=== PATIENT | female | born 1950 | race Asian ===

== ENCOUNTER 2018-05-05 18:24 | Inpatient (IN) | payer MEDICARE, OTHER ==
[~2018-05-05] VITALS: Ht 152.4 cm; Wt 47.3 kg
[2018-05-05] MEDS ORDERED: PRIM250T PO (18:59)
[2018-05-05] MEDS ORDERED: OMEP20CA10 PO (18:59)
[2018-05-05] MEDS ORDERED: MAGN400O6 PO (18:59)
[2018-05-05] MEDS ORDERED: ASPI-1169 PO (18:59)
[2018-05-05] MEDS ORDERED: NIFE30TA2 PO (18:59)
[2018-05-05] MEDS ORDERED: DOCU-141 PO (18:59)
[2018-05-05] MEDS ORDERED: DIVA500T4 PO (18:59)
[2018-05-05] MEDS ORDERED: MULT-447 PO (18:59)
[2018-05-05] MEDS ORDERED: OLAN10TA3 PO (18:59)
[2018-05-05] MEDS ORDERED: METO25TA3 PO (18:59)
[2018-05-05] MEDS ORDERED: LACT10SO PO (18:59)
[2018-05-05] MEDS ORDERED: THIA100T13 PO (18:59)
[2018-05-05] MEDS ORDERED: FLUO20CA36 PO (18:59)
[2018-05-05] MEDS ORDERED: ACET-868 PO (18:59)
--- NOTE | 2018-05-05 19:05 | NUR ---
PT BIB [facility] WITH [facility]ITATION AT [facility]. PT APPEARS RESTLESS. PT WAS TRIAGED AND TAKEN TO ROOM #16. PT IS ON THE MONITOR AND CONTINUOUS PULSE OX.
--- NOTE | 2018-05-05 19:10 | NUR ---
PT IS STANDING UP AND STATED THAT SHE HAS TO URINATE. PT WAS CLEANED AND NEW DIAPER APPLIED BY CHAVA RIDDLE
--- NOTE | 2018-05-05 19:23 | NUR ---
REPORT REC'D FROM CHAVA RIDDLE FOR NEVA.
[2018-05-05 19:31] LABS: BASOPHILS % (AUTO) 0.4 % (0.0-2.0); EOSINOPHILS % (AUTO) 13.4 % (0.0-6.0); HEMATOCRIT 26 % (33-45); HEMOGLOBIN 8.9 g/dL (11.5-14.8); LYMPHOCYTES # (AUTO) 1.5 /CMM (0.8-4.8); MEAN CORPUSCULAR HEMOGLOBIN 35 PG (26.0-33.0); MEAN CORPUSCULAR HGB CONC 34 g/dl (31.0-36.0); MEAN CORPUSCULAR VOLUME 100 fL (82-100); MONOCYTES # (AUTO) 0.6 /CMM (0.1-1.30); MONOCYTES % (AUTO) 11.9 % (2.0-12.0); NEUTROPHILS # (AUTO) 2.3 /CMM (1.8-8.9); NEUTROPHILS % (AUTO) 44.3 % (43.0-81.0); PLATELET COUNT (AUTO) 256 /CMM (150-450); RDW COEFFICIENT OF VARIATION 13.6 (11.5-15.0); RED BLOOD CELL COUNT(AUTO) 2.59 MIL/uL (4.0-5.2); WHITE BLOOD COUNT (AUTO) 5.1 K/uL (4.3-11.0)
[2018-05-05 19:46] LABS: ALANINE AMINOTRANSFERASE 47 U/L (12-78); ALBUMIN 2.8 g/dL (3.4-5.0); ALCOHOL, BLOOD < 3 mg/dL (0-0); ALKALINE PHOSPHATASE 189 U/L (46-116); ASPARTATE AMINOTRANSFERASE 27 U/L (15-37); BILIRUBIN,TOTAL 0.1 mg/dL (0.2-1.0); CALCIUM, SERUM 9.5 mg/dL (8.5-10.1); CARBON DIOXIDE 26 mmol/L (21-32); CHLORIDE 109 mmol/L (98-107); CREATININE 1.7 mg/dL (0.6-1.3); GLUCOSE 90 mg/dL (74-106); SODIUM SERUM 141 mmol/L (136-145); TOTAL PROTEIN, SERUM 7.4 g/dL (6.4-8.2); UREA NITROGEN, BLOOD 70 mg/dL (7-18)
[2018-05-05 19:49] LABS: POTASSIUM 6.4 mmol/L (3.5-5.1)
[2018-05-05 19:50] LABS: ACETAMINOPHEN < 2 ug/ml (10-30); SALICYLATE < 2.8 mg/dL (2.8-20.0)
--- NOTE | 2018-05-05 19:53 | NUR ---
REPORT GIVEN TO CHAVA LOYD FOR NEVA.
[2018-05-05] MEDS ORDERED: IV NS 0.9% 1,000 ML BAG IV ONE (20:00)
[2018-05-05] MEDS ORDERED: HALOPERIDOL LACTATE INJ 5 MG/ML VIAL ONE (20:00)
[2018-05-05] MEDS ORDERED: SODIUM POLYSTYRENE SULFONATE 15 G/60 ML BOTTLE PO ONE (20:00)
[2018-05-05] MEDS ORDERED: HALOPERIDOL LACTATE INJ 5 MG/ML VIAL IM ONE (20:00)
[2018-05-05] MEDS ORDERED: SODIUM POLYSTYRENE SULFONATE 15 G/60 ML BOTTLE ONE (20:00)
--- NOTE | 2018-05-05 20:15 | NUR ---
PT REFUSED KAYEXELATE PO. PT SPIT IT OUT. NOTIFIED.
--- NOTE | 2018-05-05 20:39 | NUR ---
IV INSERTION IN PROGRESS AT THE BEDSIDE. 20G RT HAND.
--- NOTE | 2018-05-05 20:43 | NUR ---
RIGHT HAND 20G IV PLACED WITH GOOD BLOOD RETURN AND FLUSHING WELL.
--- NOTE | 2018-05-05 21:14 | NUR ---
GAVE REPORT TO 3W NALLELY LARSEN FOR CONTINUITY OF CARE.
--- NOTE | 2018-05-05 21:49 | NUR ---
PT TRANSPORTED TO 3 IN STABLE CONDITION. TRANSFER OF CARE GIVEN TO NALLELY LARSEN.
--- NOTE | 2018-05-05 21:50 | NUR ---
MILITARY ANALYSTCHAIN MAKER MACHINE NOTES: Patient came to unit via gurney. Patient is confused, aggressive and combative. When given care, patient started screaming, hitting, and kicking staff. Patient pulled out the tele monitor and IV line. Skin and body assessment done. Skin intact, bruises on R) arm and R) leg and scratch on forehead noted. Pictures in chart. Safety measures in place. Bed in low locked position, bed alarms on. Will monitor accordingly
[2018-05-05 22:00] VITALS: BP 149/91
--- NOTE | 2018-05-05 22:28 | NUR ---
RN NOTES: ORDERS OBTAIN FOR ACUTE MEDICAL RESTRAINTS TAKEN FROM DR. FRY.
--- NOTE | 2018-05-05 22:30 | NUR ---
RN NOTES: Patient put on bilateral soft restraints on wrist. Patient aggressive and combative, pulling out IV line and tele monitor and hitting staff. Safety precautions in place. Monitor accordingly
--- NOTE | 2018-05-05 22:45 | NUR ---
CHAVA NOTES: PATIENT HAS CALMED DOWN AND IS CURRENTLY SLEEPING. Addendum: 05/06/18 at 0016 by NALLELY DRIVER RN ADDITIONAL NOTES: Tele monitor in place, Sinus ping 56
[2018-05-05] MEDS ORDERED: ACETAMINOPHEN 325 MG TABLET PO PRN (23:30)
[2018-05-05] MEDS ORDERED: OLANZAPINE 10 MG TABLET PO SCH (23:30)
[2018-05-05 23:48] LABS: TROPONIN I 0.148 ng/mL (0.00-0.056)
[2018-05-06] VITALS (7 sets, daily range): BP systolic 102–160; BP diastolic 56–88
[2018-05-06] MEDS ORDERED: TEMAZEPAM 15 MG CAPSULE PO PRN
[2018-05-06] MEDS ORDERED: ONDANSETRON HCL/PF 4 MG/2 ML VIAL IVP PRN
[2018-05-06] MEDS ORDERED: ACETAMINOPHEN 325 MG TABLET PO PRN
[2018-05-06] MEDS ORDERED: ALBUTEROL FS 2.5 MG/3 ML VIAL.NEB NEB PRN
--- NOTE | 2018-05-06 00:19 | NUR ---
SURFACE TO AIR WEAPONS OFFICER NOTES: Patient is currently sleeping, zyprexa not given. Patient gets aggressive and combative when disturbed
[2018-05-06] MEDS: HALOPERIDOL LACTATE INJ 5 MG/ML VIAL IM PRN ×2 (01:29→14:37)
--- NOTE | 2018-05-06 01:32 | NUR ---
RN NOTES: Patient started screaming and climbing out of bed. Haldol given as ordered
--- NOTE | 2018-05-06 06:22 | NUR ---
RN CLOSING NOTES: Patient sleeping in bed. Breathing even and unlabored. Not in any distress. Tele monitor in place, Sinus Rhythm 82. Bilateral soft wrist restraints in place, Q2H checks done. DVT pump in place. All needs attended to. Medication given as ordered. Will endorse NEVA to am shift RN.
[2018-05-06 06:26] LABS: ALBUMIN 2.9 g/dL (3.4-5.0); BILIRUBIN,TOTAL 0.1 mg/dL (0.2-1.0); CALCIUM, SERUM 9.4 mg/dL (8.5-10.1); CREATININE 1.5 mg/dL (0.6-1.3); MAGNESIUM 2.4 mg/dL (1.8-2.4); PHOSPHORUS 4.2 mg/dL (2.5-4.9); POTASSIUM 5.9 mmol/L (3.5-5.1); TOTAL PROTEIN, SERUM 8.1 g/dL (6.4-8.2); TROPONIN I 0.186 ng/mL (0.00-0.056)
[2018-05-06 06:34] LABS: THYROID STIMULATING HORMONE 5.581 uIU/mL (0.358-3.74)
[2018-05-06 06:43] LABS: BASOPHILS % (AUTO) 0.3 % (0.0-2.0); EOSINOPHILS % (AUTO) 14.4 % (0.0-6.0); HEMATOCRIT 31 % (33-45); HEMOGLOBIN 10.6 g/dL (11.5-14.8); LYMPHOCYTES # (AUTO) 1.5 /CMM (0.8-4.8); LYMPHOCYTES % (AUTO) 30.3 % (20.0-44.0); MEAN CORPUSCULAR HEMOGLOBIN 35 PG (26.0-33.0); MEAN CORPUSCULAR HGB CONC 34 g/dl (31.0-36.0); MEAN CORPUSCULAR VOLUME 102 fL (82-100); MONOCYTES # (AUTO) 0.4 /CMM (0.1-1.30); MONOCYTES % (AUTO) 8.7 % (2.0-12.0); NEUTROPHILS # (AUTO) 2.2 /CMM (1.8-8.9); NEUTROPHILS % (AUTO) 46.3 % (43.0-81.0); PLATELET COUNT (AUTO) 245 /CMM (150-450); RDW COEFFICIENT OF VARIATION 13.9 (11.5-15.0); RED BLOOD CELL COUNT(AUTO) 3.08 MIL/uL (4.0-5.2); WHITE BLOOD COUNT (AUTO) 4.8 K/uL (4.3-11.0)
[2018-05-06] MEDS ORDERED: OLANZAPINE 5 MG TABLET PO SCH (07:03)
--- NOTE | 2018-05-06 07:30 | NUR ---
RN NOTES PATIENT RECEIVED AWAKE ALERT AND VERBALLY RESPONSIVE, CONFUSED, ABLE TO MAKE NEEDS KNOWN, RESPIRATIONS EVEN AND UNLABORED, ABLE TO MAKE NEEDS KNOWN, DENIES ANY PAIN OR DISCOMFORT AT THIS TIME. ON SOFT WRIST RESTRAINTS, PATIENT WITH NO IV ACCESS MD AWARE. SAFETY MEASURES IN PLACE, REMINDED PATIENT TO CALL WHEN ASSISTANCE IS NEEDED. WILL CONTINUE TO FOLLOW UP WITH PT CARE NEEDS, CALL LIGHT WITH REACH WILL CONTINUE TO MONITOR
[2018-05-06] MEDS: NIFEdipine XL (30MG) 30 MG TAB PO SCH (08:36)
[2018-05-06] MEDS: THIAMINE HCL 100 MG TABLET PO SCH (08:36)
[2018-05-06] MEDS: PANTOPRAZOLE 40 MG TABLET.DR PO SCH (08:36)
[2018-05-06] MEDS: MULTIVIT, IRON, MIN NO. 8, FA 1 TAB PO SCH (08:42)
[2018-05-06] MEDS: PRIMIDONE 250 MG TABLET PO SCH ×3 (08:42→16:37)
[2018-05-06] MEDS: DIVALPROEX SODIUM 500 MG TABLET.DR PO SCH ×2 (08:42→16:37)
[2018-05-06] MEDS ORDERED: SODIUM POLYSTYRENE SULFONATE 15 G/60 ML BOTTLE PO ONE ×2 (09:30→12:00)
[2018-05-06] MEDS: ASPIRIN EC 325 MG TABLET.DR PO SCH (10:21)
[2018-05-06] MEDS ORDERED: IV 1/2NS 1000 ML 1,000 ML IV PRN (11:00)
[2018-05-06] MEDS: DIVALPROEX SODIUM 250 MG TABLET.DR PO SCH (14:37)
[2018-05-06] MEDS ORDERED: OLANZAPINE 2.5 MG TABLET PO PRN (16:00)
--- NOTE | 2018-05-06 17:20 | NUR ---
Patient resides at [facility] [phone] was transferred due to increased agitation and aggressive behavior towards the staff and residents of the facility. D/C plan is possible prakash vs back to [facility] . Addendum: 05/06/18 at 1721 by MOY CORTES RN Amended: Links added.
[2018-05-06 18:38] LABS: OCCULT BLOOD STOOL NEGATIVE (NEGATIVE)
[2018-05-06 19:00] LABS: CALCIUM, SERUM 8.6 mg/dL (8.5-10.1); CREATININE 1.5 mg/dL (0.6-1.3); POTASSIUM 5.3 mmol/L (3.5-5.1)
--- NOTE | 2018-05-06 19:10 | NUR ---
RN CLOSING NOTES PATIENT SLEEPING COMFORTABLY IN BED ABLE TO WAKE UP AND VERBALLY RESPONSIVE, CONFUSED, ABLE TO MAKE NEEDS KNOWN, RESPIRATIONS EVEN AND UNLABORED,IN NO APPARENT PAIN OR DISCOMFORT AT THIS TIME. ON SOFT WRIST RESTRAINTS, PATIENT WITH IV ACCESS TO BLACK 22G PATENT AND INTACT NO REDNESS OR INFILTRATION NOTED. SAFETY MEASURES IN PLACE, REMINDED PATIENT TO CALL WHEN ASSISTANCE IS NEEDED. WILL CONTINUE TO FOLLOW UP WITH PT CARE NEEDS, CALL LIGHT WITH REACH WILL CONTINUE TO MONITOR AND ENDORSED TO NEXT SHIFT FOR CONTINUITY OF CARE
--- NOTE | 2018-05-06 20:00 | NUR ---
MS/RN OPENING NOTES PATIENT IN BED, DISORIENTED AND REQUIRE ASSISTANCE AT ALL TIMES, IV WAS PULLED OUT AND TRYING TO GET OUT OF BED, PER AM RN , HALDOL WAS GIVEN BEFORE THE START OF SHIFT. REQUIRE RESTRAINT AND SITTER FOR SAFETY PATIENT ATTEMPT S TO HIT AND KICK, ORDERED SITTER AND RESTRAINT REQUIRE RENEWAL. RESPIRATIONS EVEN AND UNLABORED. WILL MONITOR FOR SAFETY, KEPT SKIN INTACT AND DRY, HAD BM, CHANGE AND KEPT CLEAN.
[2018-05-06] MEDS ORDERED: FLUOXETINE HCL 20 MG CAPSULE PO SCH (22:00)
[2018-05-06] MEDS: DOCUSATE SODIUM 100 MG CAPSULE PO SCH (22:26)
--- NOTE | 2018-05-06 22:41 | NUR ---
ms/rn notes PATIENT OBSERVE ASLEEP AT THIS TIME, RESTRAINT REMOVE. IV REMOVED 30 MINUTEWS AGO AND PATIENT REFUSE TO HAVE IV REINSERTION AT THIS TIME.MONITORING.ABLE TO TOLERTAE MEDICATION.
[2018-05-07] MEDS: HALOPERIDOL LACTATE INJ 5 MG/ML VIAL IM PRN (00:30)
--- NOTE | 2018-05-07 00:34 | NUR ---
ms/rn notes patietn awaken from sleep, restless and require as needed medication haldol due and im injection given , able to tolerate and monitoring any changes.
--- NOTE | 2018-05-07 00:54 | NUR ---
MS/RN NOTES ANG TRUJILLO WAS MADE AWARE REGARDING PATIENT REMOVING AND REFUSAL TO HAVE IV REINSERTED, ABLE TO DRINK, PROVIDE FLUIDS AND TOLERTAED FLUIDS HOB ELEVATED. MD ORDER TO D/C IV FLUID , ORDER CARRIED OUT.
--- NOTE | 2018-05-07 01:55 | NUR ---
MS/RN NOTES URINE COLLECTED, LAB WAS INFORMED SAID WILL ERP PROJECT MANAGER
--- NOTE | 2018-05-07 02:00 | NUR ---
MS/RN NOTES PATIENT PULLED OUT IV , INFORMED ONCCLAU TRUJILLO, MADE AWARE, SAID TO PROVIDE FLUIDS AND MONITOR INTAKE, CAN D/C IV FLUIDS.
--- NOTE | 2018-05-07 06:19 | NUR ---
MS/RN NOTES PATIENT EXHIBITING AGITATION, SCREAMING AND KICKING, NEEDED ZYPREXA TO BE GIVEN, UNABLE TO GIVE PATIENT REFUSAL TO TAKE MEDICATION .
--- NOTE | 2018-05-07 06:24 | NUR ---
308-2 MS/RN NOTES PATIENT REQUIRE FREQUENT MONITORING, WITH A SITTER, ABLE TO REMOVE RESTRAINT AND MONITORING FOR ANY CHANGES, KEPT SKIN INTACT AND DRY, WILL MONITOR.REQUIRE OXYGEN VIA NC FOR COMDORT. CALL LIGHTS WITHIN REACH, BED IN LOCK POSITION.WILL ENDORSE TO AM RN FOR CO. PATIENT ABLE TO SLEEP FEW HOURS, ABLE TO DRINK FLUIDS,WITH SITTER
[2018-05-07 07:09] LABS: TROPONIN I 0.265 ng/mL (0.00-0.056)
[2018-05-07 07:28] LABS: CREATININE, URINE 24.8 MG/DL (30.0-125.0)
[2018-05-07 07:46] LABS: CALCIUM, SERUM 9.2 mg/dL (8.5-10.1); CREATININE 1.5 mg/dL (0.6-1.3); PHOSPHORUS 4.1 mg/dL (2.5-4.9); POTASSIUM 5.5 mmol/L (3.5-5.1)
[2018-05-07 08:00] VITALS: BP 158/73
[2018-05-07] MEDS ORDERED: OLANZAPINE 2.5 MG TABLET PO SCH (09:00)
[2018-05-07] MEDS: THIAMINE HCL 100 MG TABLET PO SCH (09:50)
[2018-05-07] MEDS: MULTIVIT, IRON, MIN NO. 8, FA 1 TAB PO SCH (09:50)
[2018-05-07] MEDS: NIFEdipine XL (30MG) 30 MG TAB PO SCH (09:51)
[2018-05-07] MEDS: PANTOPRAZOLE 40 MG TABLET.DR PO SCH (09:51)
[2018-05-07] MEDS: ASPIRIN EC 325 MG TABLET.DR PO SCH (09:51)
[2018-05-07] MEDS: DIVALPROEX SODIUM 500 MG TABLET.DR PO SCH ×2 (09:51→17:11)
[2018-05-07] MEDS: PRIMIDONE 250 MG TABLET PO SCH ×3 (09:54→17:11)
[2018-05-07 09:57] LABS: HEMATOCRIT 28 % (33-45); HEMOGLOBIN 9.2 g/dL (11.5-14.8); MEAN CORPUSCULAR HEMOGLOBIN 34 PG (26.0-33.0); MEAN CORPUSCULAR VOLUME 103 fL (82-100); WHITE BLOOD COUNT (AUTO) 8.1 K/uL (4.3-11.0)
[2018-05-07 09:58] LABS: BASOPHILS % (AUTO) 0.3 % (0.0-2.0); EOSINOPHILS % (AUTO) 6.2 % (0.0-6.0); LYMPHOCYTES # (AUTO) 1.1 /CMM (0.8-4.8); LYMPHOCYTES % (AUTO) 13.6 % (20.0-44.0); MEAN CORPUSCULAR HGB CONC 33 g/dl (31.0-36.0); MONOCYTES # (AUTO) 0.7 /CMM (0.1-1.30); MONOCYTES % (AUTO) 8.9 % (2.0-12.0); NEUTROPHILS # (AUTO) 5.8 /CMM (1.8-8.9); PLATELET COUNT (AUTO) 272 /CMM (150-450); RDW COEFFICIENT OF VARIATION 14.3 (11.5-15.0)
[2018-05-07] MEDS ORDERED: SODIUM POLYSTYRENE SULFONATE 15 G/60 ML BOTTLE PO ONE (12:00)
[2018-05-07] MEDS: DIVALPROEX SODIUM 250 MG TABLET.DR PO SCH (12:36)
[2018-05-07] MEDS: OLANZAPINE 2.5 MG TABLET PO SCH (14:55)
[2018-05-07 16:00] VITALS: BP 155/79
--- NOTE | 2018-05-07 19:26 | NUR ---
RN NOTES PATIENT AWAKE ALERT AND VERBALLY RESPONSIVE, CONFUSED, ABLE TO MAKE NEEDS KNOWN, RESPIRATIONS EVEN AND UNLABORED, ABLE TO MAKE NEEDS KNOWN, DENIES ANY PAIN OR DISCOMFORT AT THIS TIME. ON SOFT WRIST RESTRAINTS, PATIENT WITH NO IV ACCESS MD AWARE. SAFETY MEASURES IN PLACE, REMINDED PATIENT TO CALL WHEN ASSISTANCE IS NEEDED. WILL CONTINUE TO FOLLOW UP WITH PT CARE NEEDS, CALL LIGHT WITH REACH WILL CONTINUE TO MONITOR AND ENDORSED TO NEXT SHIFT FOR CONTINUITY OF CARE
--- NOTE | 2018-05-07 19:50 | NUR ---
RN INITIAL NOTES: PATIENT AWAKE/VERBALLY RESPONSIVE, ABLE TO MAKE NEEDS KNOWN, BUT CONFUSED, SITTER AT BED SIDE. NO SOB NOTED, NO FACIAL GRIMACE NOTED, NO IV ACCESS PT KEPT PULLING IT OUT, MD AWARE. RECEIVED ON BILATERAL SOFT WRIST RESTRAINT, RESTRAINT PROTOCOL FOLLOWED, PT ABLE TO MOVE AND WIGGLE ARMS AND HANDS, WITH RADIAL PULSES PALPABLE AND INTACT, GOOD CAPILLARY REFILL NOTED, NO S/S OF IMPEDIMENT IN CIRCULATION NOTED. SAFETY PRECAUTIONS FOR FALL INITIATED, CALL LIGHT WITH REACH WILL CONTINUE TO MONITOR.
[2018-05-07 20:00] VITALS: BP 100/51
[2018-05-07] MEDS: DOCUSATE SODIUM 100 MG CAPSULE PO SCH (21:56)
[2018-05-07 22:00] VITALS: BP 124/73
[2018-05-07] MEDS ORDERED: OLANZAPINE 5 MG TABLET PO SCH (22:00)
--- NOTE | 2018-05-07 22:10 | NUR ---
RN NOTES: PT TOOK MEDICATION, WHOLE PILL WITH APPLE SAUCE, COOPERATIVE, DRINK JUICE, ON ASPIRATION PRECAUTION
--- NOTE | 2018-05-08 01:00 | NUR ---
RN NOTES: DECIDED TO RELEASE THE RESTRAINT AT THIS TIME, PT IS CALM, SLEEPING, NO FACIAL GRIMACE NOTED, SITTER AT BED ISDE, WILL MONITOR THE NEED FOR RESTRAINT
--- NOTE | 2018-05-08 02:39 | NUR ---
RN NOTES: SEEN PT SLEEPING AT THIS TIME, APPEARS CALM AND COMFORTABLE, RESPIRATION EVEN AND UNLABORED, RESTRAINT REMAINS RELEASED
--- NOTE | 2018-05-08 03:01 | NUR ---
RN NOTES: RESTRAINT REMAINS RELEASED AT THIS TIME, PT SLEEPING AND CALM, SITTER AT BED SIDE, WILL MONITOR THE NEED FOR RESTRAINT
--- NOTE | 2018-05-08 06:44 | NUR ---
RN CLOSING NOTES: PT IN BED, AWAKE, REMAINS CONFUSED, ABLE TO MAKE NEEDS KNOWN, PT WENT TO THE RESTROOM ASSISTED BY CANVAS MARKER COUPLE OF TIMES TO VOID. NO IV ACCESS, MD AWARE. PT PERIODIC EPISODE OF BEING COOPERATIVE AND UNCOOPERATIVE. BILATERAL SOFT WRIST RESTRAINT IN PLACED, PT IS RESTLESS, RESTRAINT PROTOCOL FOLLOWED, RADIAL PULSES PALPABLE, WITH GOOD CAPILLARY REFILL NOTED, PT ABLE TO MOVE AND WIGGLE ARMS . NO S/S OF IMPEDIMENT IN CIRCULATION NOTED. BLE OFFLOADED. SITTER AT BED SIDE. VS REMAINS STABLE, NEEDS ATTENDED. SAFETY PRECAUTIONS FOR FALL REMAINS ENGAGED. CALL LIGHT IN REACH. WILL ENDORSE TO DAY RN FOR NEVA.
[2018-05-08] MEDS: PANTOPRAZOLE 40 MG TABLET.DR PO SCH (07:13)
[2018-05-08] MEDS: OLANZAPINE 2.5 MG TABLET PO SCH ×2 (07:13→13:25)
--- NOTE | 2018-05-08 07:15 | NUR ---
RN OPENING NOTES RECEIVED PT. IN BED A&OX1, CONFUSED, AND DISORIENTED, 1:1 SITTER AT BEDSIDE. PT. HAS BILATERAL SOFT WRIST RESTRAINTS DUE TO PT. BEHAVING COMBATIVE, AND PULLING OUT LINES PER NURSE REPORT. PT. IS BREATHING UNLABORED, AND EVENLY ON ROOM AIR. NO S/S OF ACUTE DISTRESS. BED ALARM ON. BED IS IN LOWEST, AND LOCKED POSITION, AND 2 SIDE RAILS UP. WILL CONTINUE TO ASSESS AND MONITOR. ALL NEEDS MET AT THIS TIME.
[2018-05-08 08:00] VITALS: BP 133/94
[2018-05-08 08:04] LABS: CALCIUM, SERUM 8.7 mg/dL (8.5-10.1); CREATININE 1.5 mg/dL (0.6-1.3); MAGNESIUM 1.7 mg/dL (1.8-2.4); PHOSPHORUS 4.4 mg/dL (2.5-4.9); POTASSIUM 4.8 mmol/L (3.5-5.1)
[2018-05-08] MEDS: DIVALPROEX SODIUM 500 MG TABLET.DR PO SCH ×2 (09:00→16:34)
[2018-05-08] MEDS: NIFEdipine XL (30MG) 30 MG TAB PO SCH ×2 (09:00→10:11)
[2018-05-08] MEDS: ASPIRIN EC 325 MG TABLET.DR PO SCH ×2 (09:00→10:12)
[2018-05-08] MEDS: MULTIVIT, IRON, MIN NO. 8, FA 1 TAB PO SCH ×2 (09:00→10:11)
[2018-05-08] MEDS: THIAMINE HCL 100 MG TABLET PO SCH ×2 (09:00→10:11)
[2018-05-08] MEDS: PRIMIDONE 250 MG TABLET PO SCH ×4 (09:00→16:34)
--- NOTE | 2018-05-08 09:33 | NUR ---
RN NOTES PT. REFUSING TO TAKE PO MEDICATIONS. TRIED TO FEED PT. PUDDING, AND CANNED PEACHES, AND PT. WAS SPITTING OUT HER FOOD.
[2018-05-08 10:11] VITALS: BP 133/94
[2018-05-08 10:21] LABS: BASOPHILS % (AUTO) 0.6 % (0.0-2.0); EOSINOPHILS % (AUTO) 8.8 % (0.0-6.0); HEMATOCRIT 27 % (33-45); HEMOGLOBIN 9.2 g/dL (11.5-14.8); MEAN CORPUSCULAR HEMOGLOBIN 35 PG (26.0-33.0); MEAN CORPUSCULAR HGB CONC 34 g/dl (31.0-36.0); MEAN CORPUSCULAR VOLUME 102 fL (82-100); MONOCYTES % (AUTO) 8.5 % (2.0-12.0); NEUTROPHILS % (AUTO) 44.1 % (43.0-81.0); PLATELET COUNT (AUTO) 261 /CMM (150-450); RDW COEFFICIENT OF VARIATION 14.4 (11.5-15.0); RED BLOOD CELL COUNT(AUTO) 2.63 MIL/uL (4.0-5.2)
[2018-05-08] MEDS ORDERED: Magnesium 1GM/D5W 100ML PREMIX 100 ML IV SCH (10:30)
[2018-05-08] MEDS ORDERED: MAGNESIUM OXIDE 400 MG TABLET PO ONE ×2 (11:00→13:00)
[2018-05-08] MEDS ORDERED: OLAN5TAB3 PO (12:09)
[2018-05-08] MEDS ORDERED: OLAN2.5T3 PO ×2 (12:09)
[2018-05-08] MEDS ORDERED: TEMA15CA5 PO (12:09)
[2018-05-08] MEDS: DIVALPROEX SODIUM 250 MG TABLET.DR PO SCH (13:25)
[2018-05-08] MEDS ORDERED: HALOPERIDOL 5 MG TABLET PO SCH (14:30)
[2018-05-08] MEDS: BENZTROPINE MESYLATE (1 MG) 1 MG TABLET PO SCH ×2 (14:58→16:34)
--- NOTE | 2018-05-08 17:51 | NUR ---
DISCHARGE FROM MED/SURG PT. WAS DISCHARGE FROM [facility] AND WILL BE TRANSFERRED TO [facility]. DISCHARGE INSTRUCTIONS CO SIGNED WITH ANOTHER NURSE DUE TO PT. UNABLE TO DUE TO HER CONDITION. PT. IS MEDICALLY STABLE. PLACED IN CHART PICTURES TAKEN BEFORE DISCHARGE, AND BELONGINGS LIST SIGNED AND CHECKED.
[2018-05-08] MEDS ORDERED: PANT40TA4 PO (18:32)
[2018-05-08] MEDS ORDERED: ONDA2VIA2 IVP (18:32)
[2018-05-08] MEDS ORDERED: DIVA250T PO (18:32)
[2018-05-08] MEDS ORDERED: ASPI-869 PO (18:32)
[2018-05-08] MEDS ORDERED: ALBU2.5V38 IH (18:32)
[2018-05-08] MEDS ORDERED: HALO5TAB8 PO (18:32)
[2018-05-08] MEDS ORDERED: BENZ0.5T43 PO (18:32)
[2018-05-08] MEDS ORDERED: HALO5VIA12 IM (18:32)
[2018-05-08] MEDS ORDERED: TEMA15CA PO (18:32)
== END 2018-05-08 16:30 | DRG 682 ==
LOC: EDBD 18:26 → ER 18:26 → TELE 21:16 → MED 05-06 09:14
PROVIDERS: ADMIT Internal Medicine; ATTEND Internal Medicine
DX: N17.0 Acute kidney failure with tubular necrosis (principal); I21.A1 Myocardial infarction type 2; E43 Unspecified severe protein-calorie malnutrition; G93.41 Metabolic encephalopathy; I13.0 Hypertensive heart and chronic kidney disease with heart failure and stage 1 through stage 4 chronic kidney disease, or unspecified chronic kidney disease; F01.51 Vascular dementia, unspecified severity, with behavioral disturbance; F23 Brief psychotic disorder; E87.5 Hyperkalemia; N18.9 Chronic kidney disease, unspecified; G40.909 Epilepsy, unspecified, not intractable, without status epilepticus; D72.1 Eosinophilia; F25.0 Schizoaffective disorder, bipolar type; K21.9 Gastro-esophageal reflux disease without esophagitis; M19.90 Unspecified osteoarthritis, unspecified site; I50.9 Heart failure, unspecified; F32.9 Major depressive disorder, single episode, unspecified; E83.42 Hypomagnesemia; E86.0 Dehydration; D53.9 Nutritional anemia, unspecified; Z68.20 Body mass index [BMI] 20.0-20.9, adult
CPT/HCPCS: 36415; 70450-TC; 71045-TC; 76770-TC; 80048-TC; 80053-TC; 80061-TC; 80076-TC; 80164-TC; 82272-TC; 82570-TC; 82746; 83540-TC; 83735-TC; 83880; 84100-TC; 84300-TC; 84443-TC; 84484-TC; 85025-TC; 87081-TC; 93307-TC; A4606; G0480; J1630; J3490; Z7610

== ENCOUNTER 2018-05-08 15:37 | Inpatient (IN) | payer MEDICARE, OTHER ==
[~2018-05-08] VITALS: Ht 152.4 cm; Wt 47.2 kg
[~2018-05-08 15:37] MED LIST: ACET-868 PO; ASPI-1169 PO; DIVA500T4 PO; DOCU-141 PO; FLUO20CA36 PO; LACT10SO PO; MAGN400O6 PO; METO25TA3 PO; MULT-447 PO; NIFE30TA2 PO; OLAN10TA3 PO; OLAN2.5T3 PO; OLAN5TAB3 PO; OMEP20CA10 PO; PRIM250T PO; TEMA15CA5 PO; THIA100T13 PO
[2018-05-08] MEDS ORDERED: BENZTROPINE MESYLATE (2MG/2ML) 2 MG/2 ML AMPUL IM ONE (18:30)
[2018-05-08] MEDS ORDERED: HALOPERIDOL LACTATE INJ 5 MG/ML VIAL IM ONE (18:30)
[2018-05-08] MEDS ORDERED: LORAZEPAM INJ 2 MG/ML VIAL IV ONE (18:30)
[2018-05-08] MEDS ORDERED: DIVA250T PO (18:32)
[2018-05-08] MEDS ORDERED: ALBU2.5V38 IH (18:32)
[2018-05-08] MEDS ORDERED: ONDA2VIA2 IVP (18:32)
[2018-05-08] MEDS ORDERED: TEMA15CA PO (18:32)
[2018-05-08] MEDS ORDERED: HALO5TAB8 PO (18:32)
[2018-05-08] MEDS ORDERED: HALO5VIA12 IM (18:32)
[2018-05-08] MEDS ORDERED: PANT40TA4 PO (18:32)
[2018-05-08] MEDS ORDERED: ASPI-869 PO (18:32)
[2018-05-08] MEDS ORDERED: BENZ0.5T43 PO (18:32)
[2018-05-08 20:00] VITALS: BP 147/77
[2018-05-08] MEDS ORDERED: LORAZEPAM INJ 2 MG/ML VIAL IM ONE (20:00)
[2018-05-09] MEDS ORDERED: HALOPERIDOL LACTATE INJ 5 MG/ML VIAL IM PRN
[2018-05-09] MEDS ORDERED: ACETAMINOPHEN 325 MG TABLET PO PRN
[2018-05-09] MEDS: TEMAZEPAM 15 MG CAPSULE PO PRN (00:27)
[2018-05-09] MEDS ORDERED: ALBUTEROL FS 2.5 MG/3 ML VIAL.NEB NEB PRN (07:35)
[2018-05-09] MEDS: PANTOPRAZOLE 40 MG TABLET.DR PO SCH (08:25)
[2018-05-09] MEDS: THIAMINE HCL 100 MG TABLET PO SCH (08:25)
[2018-05-09] MEDS: MULTIVIT, IRON, MIN NO. 8, FA 1 TAB PO SCH (08:25)
[2018-05-09] MEDS: NIFEdipine XL (30MG) 30 MG TAB PO SCH (08:26)
[2018-05-09] MEDS: ASPIRIN EC 325 MG TABLET.DR PO SCH (08:32)
[2018-05-09] MEDS: PRIMIDONE 250 MG TABLET PO SCH ×3 (08:33→18:29)
[2018-05-09] MEDS ORDERED: DIVALPROEX SODIUM 500 MG TABLET.DR PO SCH (09:00)
[2018-05-09] MEDS ORDERED: HALOPERIDOL 5 MG TABLET PO SCH ×2 (09:00→17:00)
[2018-05-09] MEDS ORDERED: BENZTROPINE MESYLATE (1 MG) 1 MG TABLET PO SCH (09:00)
[2018-05-09] MEDS ORDERED: VALPROIC ACID 250 MG/5 ML UDC PO SCH (13:00)
[2018-05-09] MEDS ORDERED: DIVALPROEX SODIUM 250 MG TABLET.DR PO SCH (13:00)
[2018-05-09 16:00] VITALS: BP 112/83
[2018-05-09] MEDS: BENZTROPINE MESYLATE (1 MG) 1 MG TABLET PO SCH (17:46)
[2018-05-09] MEDS: VALPROIC ACID 250 MG/5 ML UDC PO SCH (17:46)
[2018-05-09 19:54] VITALS: BP 110/59
[2018-05-09] MEDS: DOCUSATE SODIUM 100 MG CAPSULE PO SCH (22:28)
[2018-05-10] MEDS: TEMAZEPAM 15 MG CAPSULE PO PRN ×2 (01:15→22:04)
[2018-05-10 08:00] VITALS: BP 148/80
[2018-05-10] MEDS ORDERED: HALOPERIDOL 5 MG TABLET PO SCH (08:00)
[2018-05-10] MEDS: VALPROIC ACID 250 MG/5 ML UDC PO SCH ×3 (08:49→17:43)
[2018-05-10] MEDS: PANTOPRAZOLE 40 MG TABLET.DR PO SCH (08:50)
[2018-05-10] MEDS: MULTIVIT, IRON, MIN NO. 8, FA 1 TAB PO SCH (08:50)
[2018-05-10] MEDS: NIFEdipine XL (30MG) 30 MG TAB PO SCH (08:50)
[2018-05-10] MEDS: THIAMINE HCL 100 MG TABLET PO SCH (08:50)
[2018-05-10] MEDS: BENZTROPINE MESYLATE (1 MG) 1 MG TABLET PO SCH ×3 (08:50→17:43)
[2018-05-10] MEDS: ASPIRIN EC 325 MG TABLET.DR PO SCH (08:50)
[2018-05-10] MEDS: PRIMIDONE 250 MG TABLET PO SCH ×3 (08:54→17:44)
[2018-05-10] MEDS: HALOPERIDOL 5 MG TABLET PO PRN (10:40)
[2018-05-10] MEDS: HALOPERIDOL 5 MG TABLET PO SCH ×2 (12:25→17:43)
[2018-05-10] MEDS ORDERED: VALPROIC ACID 250 MG/5 ML UDC PO SCH (13:00)
[2018-05-10 16:16] VITALS: BP 136/81
[2018-05-10 20:56] VITALS: BP 101/60
[2018-05-10] MEDS: DOCUSATE SODIUM 100 MG CAPSULE PO SCH (21:23)
[2018-05-11 08:00] VITALS: BP 100/51
[2018-05-11] MEDS: NIFEdipine XL (30MG) 30 MG TAB PO SCH (09:00)
[2018-05-11] MEDS: PANTOPRAZOLE 40 MG TABLET.DR PO SCH (09:26)
[2018-05-11] MEDS: MULTIVIT, IRON, MIN NO. 8, FA 1 TAB PO SCH (09:27)
[2018-05-11] MEDS: ASPIRIN EC 325 MG TABLET.DR PO SCH (09:27)
[2018-05-11] MEDS: THIAMINE HCL 100 MG TABLET PO SCH (09:27)
[2018-05-11] MEDS: BENZTROPINE MESYLATE (1 MG) 1 MG TABLET PO SCH ×3 (09:27→17:29)
[2018-05-11] MEDS: VALPROIC ACID 250 MG/5 ML UDC PO SCH ×3 (09:27→17:28)
[2018-05-11] MEDS: HALOPERIDOL 5 MG TABLET PO SCH ×3 (09:27→17:29)
[2018-05-11] MEDS: PRIMIDONE 250 MG TABLET PO SCH ×3 (09:37→17:29)
[2018-05-11 16:00] VITALS: BP 109/61
[2018-05-11] MEDS: DOCUSATE SODIUM 100 MG CAPSULE PO SCH (21:44)
[2018-05-11] MEDS: TEMAZEPAM 15 MG CAPSULE PO PRN (23:44)
[2018-05-12] MEDS: HALOPERIDOL 5 MG TABLET PO PRN (02:19)
[2018-05-12 07:14] LABS: BASOPHILS % (AUTO) 0.1 % (0.0-2.0); EOSINOPHILS % (AUTO) 9.6 % (0.0-6.0); HEMATOCRIT 27 % (33-45); HEMOGLOBIN 8.9 g/dL (11.5-14.8); LYMPHOCYTES # (AUTO) 1.5 /CMM (0.8-4.8); MEAN CORPUSCULAR HEMOGLOBIN 35 PG (26.0-33.0); MEAN CORPUSCULAR HGB CONC 34 g/dl (31.0-36.0); MEAN CORPUSCULAR VOLUME 104 fL (82-100); MONOCYTES # (AUTO) 0.6 /CMM (0.1-1.30); MONOCYTES % (AUTO) 6.7 % (2.0-12.0); NEUTROPHILS % (AUTO) 66.6 % (43.0-81.0); PLATELET COUNT (AUTO) 268 /CMM (150-450); RDW COEFFICIENT OF VARIATION 14.7 (11.5-15.0); RED BLOOD CELL COUNT(AUTO) 2.57 MIL/uL (4.0-5.2)
[2018-05-12 07:28] LABS: CALCIUM, SERUM 8.9 mg/dL (8.5-10.1); MAGNESIUM 2.4 mg/dL (1.8-2.4); PHOSPHORUS 4.4 mg/dL (2.5-4.9); POTASSIUM 4.8 mmol/L (3.5-5.1)
[2018-05-12] MEDS: PANTOPRAZOLE 40 MG TABLET.DR PO SCH ×2 (07:30→08:22)
[2018-05-12] MEDS: HALOPERIDOL 5 MG TABLET PO SCH ×3 (08:00→13:44)
[2018-05-12] MEDS: VALPROIC ACID 250 MG/5 ML UDC PO SCH ×5 (08:21→17:18)
[2018-05-12 08:22] VITALS: BP 113/66
[2018-05-12] MEDS: BENZTROPINE MESYLATE (1 MG) 1 MG TABLET PO SCH ×5 (08:22→17:18)
[2018-05-12] MEDS: ASPIRIN EC 325 MG TABLET.DR PO SCH ×2 (08:22→09:00)
[2018-05-12] MEDS: PRIMIDONE 250 MG TABLET PO SCH ×5 (08:22→17:19)
[2018-05-12] MEDS: THIAMINE HCL 100 MG TABLET PO SCH ×2 (08:22→09:00)
[2018-05-12] MEDS: MULTIVIT, IRON, MIN NO. 8, FA 1 TAB PO SCH ×2 (08:22→09:00)
[2018-05-12] MEDS: NIFEdipine XL (30MG) 30 MG TAB PO SCH ×2 (08:22→09:00)
[2018-05-12] MEDS ORDERED: LORAZEPAM INJ 2 MG/ML VIAL IM STA (08:51)
[2018-05-12] MEDS ORDERED: BENZTROPINE MESYLATE (2MG/2ML) 2 MG/2 ML AMPUL IM STA (08:51)
[2018-05-12] MEDS ORDERED: HALOPERIDOL LACTATE INJ 5 MG/ML VIAL IM STA (08:51)
[2018-05-12 16:00] VITALS: BP 134/64
[2018-05-12] MEDS: risperiDONE-M 0.5 MG TAB.RAPDIS PO SCH ×2 (17:00→17:18)
[2018-05-12 20:00] VITALS: BP 132/73
[2018-05-12] MEDS: OLANZAPINE 5 MG/TAB.RAPDIS PO SCH (21:00)
[2018-05-12] MEDS: DOCUSATE SODIUM 100 MG CAPSULE PO SCH (21:26)
[2018-05-13 06:10] LABS: BASOPHILS % (AUTO) 0.1 % (0.0-2.0); EOSINOPHILS % (AUTO) 8.5 % (0.0-6.0); HEMATOCRIT 26 % (33-45); HEMOGLOBIN 8.9 g/dL (11.5-14.8); LYMPHOCYTES # (AUTO) 1.1 /CMM (0.8-4.8); MEAN CORPUSCULAR HEMOGLOBIN 35 PG (26.0-33.0); MEAN CORPUSCULAR HGB CONC 34 g/dl (31.0-36.0); MEAN CORPUSCULAR VOLUME 103 fL (82-100); MONOCYTES # (AUTO) 0.4 /CMM (0.1-1.30); MONOCYTES % (AUTO) 6.1 % (2.0-12.0); NEUTROPHILS % (AUTO) 66.3 % (43.0-81.0); PLATELET COUNT (AUTO) 276 /CMM (150-450); RDW COEFFICIENT OF VARIATION 14.5 (11.5-15.0); RED BLOOD CELL COUNT(AUTO) 2.53 MIL/uL (4.0-5.2)
[2018-05-13 06:46] LABS: ALBUMIN 3.1 g/dL (3.4-5.0); BILIRUBIN,TOTAL 0.2 mg/dL (0.2-1.0); MAGNESIUM 2.3 mg/dL (1.8-2.4); PHOSPHORUS 3.5 mg/dL (2.5-4.9); POTASSIUM 4.7 mmol/L (3.5-5.1); TOTAL PROTEIN, SERUM 7.9 g/dL (6.4-8.2)
[2018-05-13 07:38] LABS: CREATINE KINASE MB 3.9 ng/mL (0-3.6)
[2018-05-13 08:00] VITALS: BP 104/59
[2018-05-13] MEDS: NIFEdipine XL (30MG) 30 MG TAB PO SCH (09:00)
[2018-05-13] MEDS: risperiDONE-M 0.5 MG TAB.RAPDIS PO SCH ×2 (09:39→16:33)
[2018-05-13] MEDS: THIAMINE HCL 100 MG TABLET PO SCH (09:40)
[2018-05-13] MEDS: MULTIVIT, IRON, MIN NO. 8, FA 1 TAB PO SCH (09:40)
[2018-05-13] MEDS: ASPIRIN EC 325 MG TABLET.DR PO SCH (09:40)
[2018-05-13] MEDS: BENZTROPINE MESYLATE (1 MG) 1 MG TABLET PO SCH ×3 (09:40→16:33)
[2018-05-13] MEDS: VALPROIC ACID 250 MG/5 ML UDC PO SCH ×3 (09:40→16:34)
[2018-05-13] MEDS: PRIMIDONE 250 MG TABLET PO SCH ×3 (09:42→16:33)
[2018-05-13] MEDS: PANTOPRAZOLE 40 MG TABLET.DR PO SCH (09:42)
[2018-05-13 16:00] VITALS: BP 101/59
[2018-05-13] MEDS: HALOPERIDOL 5 MG TABLET PO PRN (18:34)
[2018-05-13 20:00] VITALS: BP 133/56
[2018-05-13] MEDS: TEMAZEPAM 15 MG CAPSULE PO PRN ×2 (21:24→21:25)
[2018-05-13] MEDS: OLANZAPINE 5 MG/TAB.RAPDIS PO SCH (21:30)
[2018-05-13] MEDS: DOCUSATE SODIUM 100 MG CAPSULE PO SCH (21:41)
[2018-05-14] MEDS: HALOPERIDOL 5 MG TABLET PO PRN (03:36)
[2018-05-14 08:00] VITALS: BP 157/70
[2018-05-14] MEDS: risperiDONE-M 0.5 MG TAB.RAPDIS PO SCH ×2 (08:59→16:52)
[2018-05-14] MEDS: PANTOPRAZOLE 40 MG TABLET.DR PO SCH (09:00)
[2018-05-14] MEDS: THIAMINE HCL 100 MG TABLET PO SCH (09:00)
[2018-05-14] MEDS: BENZTROPINE MESYLATE (1 MG) 1 MG TABLET PO SCH ×3 (09:00→16:52)
[2018-05-14] MEDS: MULTIVIT, IRON, MIN NO. 8, FA 1 TAB PO SCH (09:01)
[2018-05-14] MEDS: ASPIRIN EC 325 MG TABLET.DR PO SCH (09:01)
[2018-05-14] MEDS: NIFEdipine XL (30MG) 30 MG TAB PO SCH (09:01)
[2018-05-14] MEDS: VALPROIC ACID 250 MG/5 ML UDC PO SCH ×3 (09:01→16:53)
[2018-05-14] MEDS: PRIMIDONE 250 MG TABLET PO SCH ×3 (09:15→16:56)
[2018-05-14 16:00] VITALS: BP 126/59
[2018-05-14 16:09] LABS: PTH, INTACT 249 pg/mL (15-65)
[2018-05-14 20:00] VITALS: BP 124/63
[2018-05-14] MEDS: DOCUSATE SODIUM 100 MG CAPSULE PO SCH ×2 (22:00→22:10)
[2018-05-14] MEDS: OLANZAPINE 5 MG/TAB.RAPDIS PO SCH (22:00)
[2018-05-15 08:00] VITALS: BP 132/82
[2018-05-15] MEDS: PANTOPRAZOLE 40 MG TABLET.DR PO SCH (08:03)
[2018-05-15] MEDS: VALPROIC ACID 250 MG/5 ML UDC PO SCH ×3 (08:16→16:42)
[2018-05-15] MEDS: THIAMINE HCL 100 MG TABLET PO SCH (08:17)
[2018-05-15] MEDS: ASPIRIN EC 325 MG TABLET.DR PO SCH (08:18)
[2018-05-15] MEDS: MULTIVIT, IRON, MIN NO. 8, FA 1 TAB PO SCH (08:18)
[2018-05-15] MEDS: BENZTROPINE MESYLATE (1 MG) 1 MG TABLET PO SCH ×3 (08:19→16:41)
[2018-05-15] MEDS: NIFEdipine XL (30MG) 30 MG TAB PO SCH (08:19)
[2018-05-15] MEDS: risperiDONE-M 0.5 MG TAB.RAPDIS PO SCH ×2 (08:19→16:42)
[2018-05-15] MEDS: PRIMIDONE 250 MG TABLET PO SCH ×3 (09:52→16:43)
[2018-05-15 16:00] VITALS: BP 100/65
[2018-05-15] MEDS: HALOPERIDOL 5 MG TABLET PO PRN (17:21)
[2018-05-15 20:26] VITALS: BP 85/51
[2018-05-15] MEDS: OLANZAPINE 5 MG/TAB.RAPDIS PO SCH (20:58)
[2018-05-15 21:26] VITALS: BP 95/59
[2018-05-15] MEDS: TEMAZEPAM 15 MG CAPSULE PO PRN (21:32)
[2018-05-16 08:00] VITALS: BP 148/91
[2018-05-16 08:00] LABS: BASOPHILS % (AUTO) 0.4 % (0.0-2.0); EOSINOPHILS % (AUTO) 9.5 % (0.0-6.0); HEMATOCRIT 27 % (33-45); HEMOGLOBIN 8.9 g/dL (11.5-14.8); LYMPHOCYTES # (AUTO) 1.7 /CMM (0.8-4.8); LYMPHOCYTES % (AUTO) 36.7 % (20.0-44.0); MEAN CORPUSCULAR HEMOGLOBIN 35 PG (26.0-33.0); MEAN CORPUSCULAR HGB CONC 33 g/dl (31.0-36.0); MEAN CORPUSCULAR VOLUME 104 fL (82-100); MONOCYTES # (AUTO) 0.5 /CMM (0.1-1.30); MONOCYTES % (AUTO) 9.8 % (2.0-12.0); NEUTROPHILS % (AUTO) 43.6 % (43.0-81.0); PLATELET COUNT (AUTO) 283 /CMM (150-450); RDW COEFFICIENT OF VARIATION 14.8 (11.5-15.0); RED BLOOD CELL COUNT(AUTO) 2.58 MIL/uL (4.0-5.2); WHITE BLOOD COUNT (AUTO) 4.6 K/uL (4.3-11.0)
[2018-05-16 08:15] LABS: CALCIUM, SERUM 9.1 mg/dL (8.5-10.1); CREATININE 1.7 mg/dL (0.6-1.3); MAGNESIUM 2.5 mg/dL (1.8-2.4); PHOSPHORUS 4.5 mg/dL (2.5-4.9); POTASSIUM 5.3 mmol/L (3.5-5.1)
[2018-05-16] MEDS: BENZTROPINE MESYLATE (1 MG) 1 MG TABLET PO SCH ×3 (09:02→17:11)
[2018-05-16] MEDS: PRIMIDONE 250 MG TABLET PO SCH ×3 (09:02→17:11)
[2018-05-16] MEDS: ASPIRIN EC 325 MG TABLET.DR PO SCH (09:02)
[2018-05-16] MEDS: risperiDONE-M 0.5 MG TAB.RAPDIS PO SCH ×2 (09:03→17:11)
[2018-05-16] MEDS: THIAMINE HCL 100 MG TABLET PO SCH (09:03)
[2018-05-16] MEDS: MULTIVIT, IRON, MIN NO. 8, FA 1 TAB PO SCH (09:03)
[2018-05-16] MEDS: PANTOPRAZOLE 40 MG TABLET.DR PO SCH (09:03)
[2018-05-16] MEDS: VALPROIC ACID 250 MG/5 ML UDC PO SCH ×3 (09:08→17:11)
[2018-05-16 09:19] LABS: *SPE ALBUMIN 3.6 g/dL (2.9-4.4); *SPE ALPHA-1-GLOBULIN 0.3 g/dL (0.0-0.4); *SPE ALPHA-2-GLOBULIN 0.6 g/dL (0.4-1.0); *SPE BETA GLOBULIN 0.9 g/dL (0.7-1.3); *SPE GLOBULIN, TOTAL 3.6 g/dL (2.2-3.9); *SPE M-SPIKE Not Observed g/dL (Not Observed); *SPEGAMMA GLOBULIN 1.8 g/dL (0.4-1.8)
[2018-05-16] MEDS: NIFEdipine XL (30MG) 30 MG TAB PO SCH (10:15)
[2018-05-16] MEDS: HALOPERIDOL 5 MG TABLET PO PRN (12:19)
[2018-05-16 16:00] VITALS: BP 100/56
[2018-05-16 20:00] VITALS: BP 123/76
[2018-05-16 20:02] LABS: BASOPHILS % (AUTO) 0.3 % (0.0-2.0); EOSINOPHILS % (AUTO) 6.7 % (0.0-6.0); HEMATOCRIT 24 % (33-45); HEMOGLOBIN 8.7 g/dL (11.5-14.8); LYMPHOCYTES # (AUTO) 1.4 /CMM (0.8-4.8); LYMPHOCYTES % (AUTO) 18.8 % (20.0-44.0); MEAN CORPUSCULAR HEMOGLOBIN 36 PG (26.0-33.0); MEAN CORPUSCULAR HGB CONC 36 g/dl (31.0-36.0); MEAN CORPUSCULAR VOLUME 100 fL (82-100); MONOCYTES # (AUTO) 0.5 /CMM (0.1-1.30); MONOCYTES % (AUTO) 7.1 % (2.0-12.0); NEUTROPHILS # (AUTO) 4.8 /CMM (1.8-8.9); NEUTROPHILS % (AUTO) 67.1 % (43.0-81.0); PLATELET COUNT (AUTO) 261 /CMM (150-450); RDW COEFFICIENT OF VARIATION 13.2 (11.5-15.0); RED BLOOD CELL COUNT(AUTO) 2.43 MIL/uL (4.0-5.2); WHITE BLOOD COUNT (AUTO) 7.3 K/uL (4.3-11.0)
[2018-05-16] MEDS ORDERED: SODIUM POLYSTYRENE SULFONATE 15 G/60 ML BOTTLE PO ONE (20:30)
[2018-05-16] MEDS: DOCUSATE SODIUM 100 MG CAPSULE PO SCH (21:52)
[2018-05-16] MEDS: OLANZAPINE 5 MG/TAB.RAPDIS PO SCH (21:52)
[2018-05-16] MEDS: TEMAZEPAM 15 MG CAPSULE PO PRN (22:57)
[2018-05-17 07:35] LABS: ALBUMIN 2.9 g/dL (3.4-5.0); BILIRUBIN,TOTAL 0.1 mg/dL (0.2-1.0); CALCIUM, SERUM 8.4 mg/dL (8.5-10.1); CREATININE 1.8 mg/dL (0.6-1.3); TOTAL PROTEIN, SERUM 7.4 g/dL (6.4-8.2)
[2018-05-17 08:00] VITALS: BP 93/51
[2018-05-17] MEDS: NIFEdipine XL (30MG) 30 MG TAB PO SCH (08:12)
[2018-05-17] MEDS: VALPROIC ACID 250 MG/5 ML UDC PO SCH ×4 (08:23→18:40)
[2018-05-17] MEDS: PANTOPRAZOLE 40 MG TABLET.DR PO SCH (08:23)
[2018-05-17] MEDS: risperiDONE-M 0.5 MG TAB.RAPDIS PO SCH ×4 (08:24→18:40)
[2018-05-17] MEDS: THIAMINE HCL 100 MG TABLET PO SCH (08:24)
[2018-05-17] MEDS: BENZTROPINE MESYLATE (1 MG) 1 MG TABLET PO SCH ×4 (08:24→18:39)
[2018-05-17] MEDS: ASPIRIN EC 325 MG TABLET.DR PO SCH (08:24)
[2018-05-17] MEDS: MULTIVIT, IRON, MIN NO. 8, FA 1 TAB PO SCH (08:24)
[2018-05-17] MEDS: PRIMIDONE 250 MG TABLET PO SCH ×4 (08:25→18:40)
[2018-05-17 16:00] VITALS: BP 103/52
[2018-05-17 20:01] VITALS: BP 135/71
[2018-05-17] MEDS: OLANZAPINE 2.5 MG TABLET PO PRN (20:32)
[2018-05-17] MEDS: OLANZAPINE 5 MG/TAB.RAPDIS PO SCH (21:36)
[2018-05-17] MEDS: DOCUSATE SODIUM 100 MG CAPSULE PO SCH (21:45)
[2018-05-18] MEDS: TEMAZEPAM 15 MG CAPSULE PO PRN (01:54)
[2018-05-18 08:00] VITALS: BP 99/50
[2018-05-18] MEDS: ASPIRIN EC 325 MG TABLET.DR PO SCH (08:30)
[2018-05-18] MEDS: VALPROIC ACID 250 MG/5 ML UDC PO SCH ×3 (08:30→16:40)
[2018-05-18] MEDS: BENZTROPINE MESYLATE (1 MG) 1 MG TABLET PO SCH ×3 (08:30→16:40)
[2018-05-18] MEDS: PRIMIDONE 250 MG TABLET PO SCH ×3 (08:30→16:40)
[2018-05-18] MEDS: risperiDONE-M 0.5 MG TAB.RAPDIS PO SCH ×3 (08:30→16:40)
[2018-05-18] MEDS: MULTIVIT, IRON, MIN NO. 8, FA 1 TAB PO SCH (08:30)
[2018-05-18] MEDS: THIAMINE HCL 100 MG TABLET PO SCH (08:30)
[2018-05-18] MEDS: PANTOPRAZOLE 40 MG TABLET.DR PO SCH (08:30)
[2018-05-18] MEDS: NIFEdipine XL (30MG) 30 MG TAB PO SCH (08:35)
[2018-05-18 12:13] LABS: CALCITRIOL VIT D,1, 25 DIHYDRO 22.5 pg/mL (19.9-79.3)
[2018-05-18 12:13] LABS: CALCITRIOL VIT D,1, 25 DIHYDRO 20.3 pg/mL (19.9-79.3)
[2018-05-18 16:00] VITALS: BP 111/54
[2018-05-18 20:04] VITALS: BP 100/59
[2018-05-18] MEDS: OLANZAPINE 5 MG/TAB.RAPDIS PO SCH (21:04)
[2018-05-18] MEDS: DOCUSATE SODIUM 100 MG CAPSULE PO SCH (21:08)
[2018-05-19] MEDS: OLANZAPINE 2.5 MG TABLET PO PRN (05:02)
[2018-05-19 08:00] VITALS: BP 131/70
[2018-05-19] MEDS: MULTIVIT, IRON, MIN NO. 8, FA 1 TAB PO SCH (08:07)
[2018-05-19] MEDS: VALPROIC ACID 250 MG/5 ML UDC PO SCH ×2 (08:07→12:09)
[2018-05-19] MEDS: ASPIRIN EC 325 MG TABLET.DR PO SCH (08:07)
[2018-05-19] MEDS: BENZTROPINE MESYLATE (1 MG) 1 MG TABLET PO SCH ×2 (08:07→12:10)
[2018-05-19] MEDS: PRIMIDONE 250 MG TABLET PO SCH ×2 (08:07→12:09)
[2018-05-19] MEDS: PANTOPRAZOLE 40 MG TABLET.DR PO SCH (08:07)
[2018-05-19] MEDS: THIAMINE HCL 100 MG TABLET PO SCH (08:07)
[2018-05-19] MEDS: risperiDONE-M 0.5 MG TAB.RAPDIS PO SCH ×2 (08:07→12:09)
[2018-05-19 08:08] VITALS: BP 131/70
[2018-05-19] MEDS: NIFEdipine XL (30MG) 30 MG TAB PO SCH (08:08)
== END 2018-05-19 13:45 | DRG 885 ==
LOC: GPSOV 15:37 → GPS 05-09 16:10
PROVIDERS: ADMIT Psychiatry & Neurology Psychosomatic Medicine
DX: F29 Unspecified psychosis not due to a substance or known physiological condition (principal); F01.51 Vascular dementia, unspecified severity, with behavioral disturbance; N17.9 Acute kidney failure, unspecified; N18.9 Chronic kidney disease, unspecified; G93.40 Encephalopathy, unspecified; I21.A1 Myocardial infarction type 2; N25.81 Secondary hyperparathyroidism of renal origin; E44.1 Mild protein-calorie malnutrition; F25.0 Schizoaffective disorder, bipolar type; G40.909 Epilepsy, unspecified, not intractable, without status epilepticus; E86.0 Dehydration; E87.5 Hyperkalemia; D72.1 Eosinophilia; K21.9 Gastro-esophageal reflux disease without esophagitis; M19.90 Unspecified osteoarthritis, unspecified site; D53.9 Nutritional anemia, unspecified; I12.9 Hypertensive chronic kidney disease with stage 1 through stage 4 chronic kidney disease, or unspecified chronic kidney disease; Z68.20 Body mass index [BMI] 20.0-20.9, adult
CPT/HCPCS: 36415; 80048-TC; 80053-TC; 80164-TC; 82306; 82550-TC; 82553-TC; 82652; 83735-TC; 83970; 84100-TC; 84155; 84165; 85025-TC; 87081-TC; 97116-TC; 97530-TC; J0515; J1630; J2060; J7030